=== PATIENT | female | born 1965 ===

== ENCOUNTER 2019-07-06 05:57 | Day surgery (SDC) | payer OTHER ==
[2019-07-05 12:28] VITALS: BMI 23.3
[2019-07-06] MEDS ORDERED: SODIUM CHLORIDE 0.9% P/F 10 ML VIAL IJ ONE (07:22)
[2019-07-06] MEDS ORDERED: KETOROLAC TROMETHAMINE 30 MG/1 ML VIAL ONE (07:22)
[2019-07-06] MEDS ORDERED: DEXAMETHASONE SOD PHOSPHATE 4 MG/1 ML VIAL ONE (07:22)
[2019-07-06] MEDS ORDERED: ceFAZolin SODIUM 1 GM VIAL ONE ×2 (07:22→12:28)
[2019-07-06] MEDS ORDERED: LIDOCAINE HCL/PF 2% SDV 5ML VIAL ONE (07:22)
[2019-07-06] MEDS ORDERED: PROPOFOL 20 ML ONE (07:23)
[2019-07-06] MEDS ORDERED: SUCCINYLCHOLINE CHLORIDE 200 MG/10 ML SYRINGE ONE (07:24)
[2019-07-06] MEDS ORDERED: DEXAMETHASONE SOD PHOSPHATE/PF 10 MG/ML SDV ONE (07:25)
[2019-07-06] MEDS ORDERED: BUPIVACAINE HCL/PF 0.5% (5 MG/ML) 30 ML VIAL IJ ONE ×2 (07:25→07:32)
[2019-07-06] MEDS ORDERED: MIDAZOLAM HCL 2 MG/2 ML SINGLE DOSE VIAL ONE ×2 (07:27)
[2019-07-06] MEDS ORDERED: ceFAZolin SODIUM 1 GM VIAL IVPB ONE ×2 (08:37→13:35)
[2019-07-06] MEDS ORDERED: ONDANSETRON 4 MG/2 ML VIAL IVPUSH PRN (08:40)
[2019-07-06] MEDS ORDERED: oxyCODONE HCL 5 MG TABLET PO PRN (08:40)
[2019-07-06] MEDS ORDERED: LACTATED RINGERS SOLUTION 1,000 ML IV SCH (08:45)
--- NOTE | 2019-07-06 10:01 | HP ---
Satellite [facility] - Chief Complaint Chief Complaint: right knee pain, instability - Past Medical History Allergies/Adverse Reactions: Allergies Allergy/AdvReac Type Severity Reaction Status Date / Time No Known Allergies Allergy Verified 07/06/19 06:26 ...LMP Comment: lmp . 14 years ago - Current Medications Current Medications: Home Medications Medication Instructions Recorded Biotin 5,000 mcg PO DAILY 07/05/19 Ergocalciferol (Vitamin D2) 1,000 unit PO DAILY 07/05/19 [Vitamin D2] Gabapentin [Neurontin] 300 mg PO BID 07/05/19 Levothyroxine [Synthroid -] 50 mcg PO DAILY 07/05/19 Multivitamins [Multivit ([facility] 1 tab PO DAILY 07/05/19 Formulary)] Pravastatin Sodium [Pravachol] 40 mg PO DAILY 07/05/19 Sertraline HCl 150 mg PO DAILY 07/05/19 Vitamin E 400 unit PO DAILY 07/05/19 Oxycodone HCl/Acetaminophen 1 - 2 tab PO Q6H #30 tab MDD 6 07/06/19 [Percocet 5-325 mg Tablet] Satellite Physical Exam - Physical Examination Vital Signs: Vital Signs Period Temp Pulse Resp BP Sys/Nicole Pulse Ox Last 24 Hr 98.0 F-98.0 F 55-55 20-20 120-120/72-72 96 General Appearance: Well Nourished, Well Developed, Alert & Oriented x3 ENT: Clear Lung: Normal air movement Heart: Regular rate & rhythm Extremities: Other (right knee- + well healed surgical incisions, + swelling, + ttp, + akosua, + ant draw, +pivot, nvi MRI + acl rupture) Neurological: Intact, Alert, Oriented Satellite Impression/Plan - Impression/Plan Impression: right knee acl tear s/p acl reconstruction Operative Procedure: right knee arthroscopy with revision ACL reconstruction using graftlink allograft and possible removal of hardware Date to be Performed: 07/06/19
--- NOTE | 2019-07-06 10:03 | OP ---
Operative Note - Note: Operative Date: 07/06/19 ([facility]) Pre-Operative Diagnosis: right knee acl tear Operation: right knee arthroscopy with ACL reconstruction using graftlink allograft, removal of hardware Post-Operative Diagnosis: Same as Pre-op Surgeon: Oli Govea Dedicated Local Truck Driver: Allan Quigley Anesthesiologist/DYNAMOMETER TUNER: Vaibhav Gresham Anesthesia: Spinal, Local Specimens Removed: screw Estimated Blood Loss (mls): 5 Operative Report Dictated: Yes
[2019-07-06] MEDS ORDERED: CEFAZOLIN 1 GM in DEXTROSE 5%-WATER - 50 ML IVPB ONE (10:15)
--- NOTE | 2019-07-06 12:12 | OP ---
DATE OF OPERATION: 07/06/2019 PREOPERATIVE DIAGNOSIS: Right anterior cruciate ligament tear. POSTOPERATIVE DIAGNOSIS: Right anterior cruciate ligament tear. PROCEDURE: Right anterior cruciate ligament reconstruction with GraftLink and removal of screw, right knee. SURGICAL ATTENDING: Oli Govea MD UPHOLSTERER APPRENTICE: MANAS Liang ANESTHESIA: Regional and spinal. CLOSURE: A GraftLink with appropriate interlocks for ACL, 3-0 nylon for skin. ESTIMATED BLOOD LOSS: Negligible. COMPLICATIONS: None. CONDITION: To recovery in stable condition. DESCRIPTION OF OPERATIVE PROCEDURE: Patient taken to the operating room on July 06, 2019. Spinal and regional anesthesia was administered by the anesthesiologist. IV Kefzol was administered prophylactically prior to the case. Right lower extremity was prepped and draped in the usual sterile fashion. The superomedial and medial and lateral infrapatellar portals were infiltrated with lidocaine. All portals were then made with a 15 blade, followed by blunt trocar. Outflow was superomedially, scope portal was inferolaterally, and working portal was inferomedial. The scope was placed in the lateral infrapatellar portal and up in the suprapatellar pouch. Pouch was visualized to be clean. The medial and lateral gutters were visualized to be clean. The undersurface of the patella and trochlea were visualized to be basically intact. With valgus stress on the knee, the medial compartment was entered and the medial meniscus had some fraying, but it was intact to probing and to visualization. The medial femoral condyle had some grade 2 changes, but otherwise was intact, as was the medial tibial plateau. In the figure-4 position, the lateral compartment was entered. Lateral meniscus was visualized, probed, found to be intact. Lateral femoral condyle was run and found to be intact as was the lateral tibial plateau. At 90 degrees, the ACL, which had been reconstructed previously, was found to be completely torn and was debrided using the shaver. There was a large amount of stenosis in the notch which was debrided using the shaver and the tanya, and a notchplasty was performed, gaining sufficient width and height of the notch. In preparation of the notch, the previous interference screw on the femoral side was visualized and was found to be somewhat loose. It was then curetted around its edges and removed. The position of that screw was very anterior and very vertical, keeping it away from our location of the new tunnel for the new ACL. Using the inside-out, [id number] guide, a FlipCutter was drilled from the anterolateral distal femur, into the knee in the posterior aspect of the notch, low on the wall, to get horizontal nature of the graft. It was drilled into the knee, and then, the FlipCutter was deployed and was used to retrograde a 10-mm tunnel. All bone fragments were debrided using the shaver. A good posterior wall was clearly seen. A FiberStick suture was deployed through the guide and delivered into the knee and pulled out the portal for later traction purposes. The guide was then used on the tibial side just anterior to the PCL. The FlipCutter was drilled from anteromedial proximal tibia. It was then flipped, and retrograde reaming of a 10-mm tunnel was performed. All reamings again were debrided using the shaver. We elected to leave the previous fixation brenna in place as they were well fixed and out of the way of this surgical field, and we were able to drill the tunnels without interference from the brenna. A FiberStick was placed up the tibial tunnel, delivered into the knee joint, and out the inferomedial portal. The GraftLink graft was prepared on the back table with appropriate markings and traction sutures with a femoral button attached. The graft was then pulled through the shuttle sutures both into the femur and into the tibia. It was first put into the femur. The button was found to engage the outer cortex and was used to toggle up the femoral graft to the appropriate depth, then pulled down the tibial tunnel. A button was deployed on the tibial side and was toggled on that side. Both toggles were then simultaneously toggled to achieve good tension on the graft. Knee was taken through a range of motion. go from full extension to full flexion with negative Rafy and anterior and posterior drawer and negative pivot shift. Direct visualization revealed good crossing of the PCL with no impingement on the notch throughout range of motion. The sutures were then cut snug with the bone. Instruments were removed, and the portals were closed using 3-0 nylon suture. Sterile pressure dressing, followed by a knee immobilizer, was applied. Patient awakened from anesthesia and transferred to recovery in stable condition. No complications. Estimated blood loss negligible. Paulo SINGH/[id number]
[2019-07-06 15:05] VITALS: BP 109/71; PULSE 64; TEMP 97.9
--- NOTE | 2019-07-07 15:43 | PATH ---
Surgical Pathology Report Patient Name: ESSENCE BUSH Med. Rec. #: [id number] /Age/Gender: 1965 (Age: 53) / F Account: [id number] Location: [facility] SURGICAL Taken: 07/06/2019 Received: 07/06/2019 Reported: 07/07/2019 Physicians: Oli Govea M.D. Specimen(s) Received A: RIGHT KNEE SHAVINGS B: RIGHT KNEE REMOVED HARDWARE Clinical History Right ACL reconstruction Final Diagnosis A. KNEE SHAVINGS, RIGHT, ACL RECONSTRUCTION: FRAGMENTS OF CARTILAGE, BONE, DENSE FIBROCONNECTIVE TISSUE, ADIPOSE TISSUE, AND SYNOVIUM. B. HARDWARE, KNEE, RIGHT, REMOVAL: SURGICAL HARDWARE. MACROSCOPIC DIAGNOSIS. Electronically Signed Rosanna Sy M.D. Gross Description A. Received in formalin, labeled "right knee shavings," is a 4 x 3 x 1 cm. aggregate of winston-yellow soft tissue fragments. A labor [employer] business representative portion is submitted in one cassette. B. Received fresh labeled "right knee removed hardware" is a single metal screw measuring 2 cm in length with a 0.2 cm diameter. No soft tissue present, for gross examination only. MLSZ/07/06/2019 sanml/07/06/2019
== END 2019-07-06 14:40 | disposition home or self-care (01) ==
LOC: JASU-SURG 05:57
PROVIDERS: ATTEND Orthopaedic Surgery
PROC: 0SPC04Z Removal of Internal Fixation Device from Right Knee Joint, Open Approach (ICD-10-PCS; 2019-07-06)
PROC: 0MQN4ZZ Repair Right Knee Bursa and Ligament, Percutaneous Endoscopic Approach (ICD-10-PCS; principal; 2019-07-06 08:00)
DX: S83.511A Sprain of anterior cruciate ligament of right knee, initial encounter (principal); X58.XXXA Exposure to other specified factors, initial encounter; Y93.9 Activity, unspecified; Y92.9 Unspecified place or not applicable
CPT/HCPCS: 20680; 29888; C1713; 88300-TC; 88304-TC; 94760